=== PATIENT | male | born 1985 | race Asian ===

== ENCOUNTER 2019-05-05 12:28 | Observation (INO) | payer OTHER ==
[~2019-05-05] VITALS: Ht 172.7 cm; Wt 78.5 kg
[2019-05-05] MEDS ORDERED: KETOROLAC TROMETHAMINE 30 MG/ML VIAL ONE (12:51)
[2019-05-05] MEDS ORDERED: SODIUM CHLORIDE 0.9% 1000ML 1,000 ML ONE (12:52)
[2019-05-05] MEDS ORDERED: ONDANSETRON HCL INJ 2MG/ML 2ML 2 MG/ML VIAL ONE ×3 (12:52→20:05)
--- NOTE | 2019-05-05 13:30 | NUR ---
auto detailer phone used per policy.
--- NOTE | 2019-05-05 14:16 | Diagnostic Imaging Report ---
EXAMINATION: CT of the abdomen and pelvis without contrast. TECHNIQUE: Spiral CT images of the abdomen and pelvis were performed from the lung bases to the lesser trochanters. No intravenous contrast was given per renal stone protocol. Coronal and sagittal reformatted images were obtained. Technique modification was utilized to maintain the lowest dose possible to the patient. DLP: 425.02 mGy-cm COMPARISON: None. CLINICAL HISTORY:Right flank pain DISCUSSION: ABSENCE OF INTRAVENOUS CONTRAST DECREASES SENSITIVITY FOR DETECTION OF FOCAL LESIONS AND VASCULAR PATHOLOGY. ABDOMEN/PELVIS: LOWER THORAX: Unremarkable. HEPATOBILIARY:No focal hepatic lesions. No biliary ductal dilation. The gallbladder is normal. SPLEEN: No splenomegaly. PANCREAS: No focal masses or ductal dilatation. ADRENALS: No adrenal nodules. KIDNEYS/URETERS: Mild right hydronephrosis with dilated ureter. There is a 5-6 mm distal ureteral stone on the right at the acetabular level in the pelvis. PELVIC ORGANS/BLADDER: The bladder is normal. PERITONEUM/RETROPERITONEUM: No free air or fluid. LYMPH NODES: No intra-abdominal,retroperitoneal, pelvic or inguinal lymphadenopathy. VESSELS: Normal GI TRACT: No distention or wall thickening. BONES AND SOFT TISSUES: No bony destructive lesions. No soft tissue abnormalities. IMPRESSION: Distal right ureteral stone with resultant mild right hydronephrosis and hydroureter. Signed by: Dr. Juarez Castano DO on 05/05/2019 2:13 PM
[2019-05-05] MEDS ORDERED: ONDANSETRON HCL INJ 2MG/ML 2ML 2 MG/ML VIAL IV PRN (14:30)
[2019-05-05] MEDS ORDERED: KETOROLAC TROMETHAMINE 30 MG/ML VIAL IV PRN (14:30)
--- NOTE | 2019-05-05 14:41 | NUR ---
EMS CALLED ([facility])
--- OUTSIDE RECORDS SUMMARY | 2019-05-05 15:12 | XMS REPORT ---
Author Author [facility] Address Unknown Phone Unavailable Care Team Providers Care Logistics Tech Name Role Phone CAT NOLAN Unavailable Unavailable Problems This patient has no known problems. Allergies, Adverse Reactions, Alerts This patient has no known allergies or adverse reactions. Medications This patient has no known medications. Results Test Description Test Time Test Comments Text Results Atomic Results Result Comments CT ABD/PEL WO CONTRAST-HOPD 2019-05-05 14:06:00 [place] [address] Patient Name: WILBUR DEAN MR #: [id number] : 1985 Age/Sex: 33/M Req #: [id number] [facility] Physician: Ordered by: CAT NOLAN MD Report #: [id number] Location: REPLACED BY [facility] Room/Bed: Procedure: [id number] HOPD/CT ABD/PEL WO CONTRAST-HOPD Exam Date: 05/05/19 Exam Time: 1319 REPORT STATUS: Signed EXAMINATION: CT of the abdomen and pelvis without contrast. TECHNIQUE: Spiral CT images of the abdomen and pelvis were performed from the lung bases to the lesser trochanters. No intravenous contrast was given per renal stone protocol. Coronal and sagittal reformatted images were obtained. Technique modification was utilized to maintain the lowest dose possible to the patient. DLP: 425.02 mGy-cm COMPARISON: None. CLINICAL HISTORY:Right flank pain DISCUSSION: ABSENCE OF INTRAVENOUS CONTRAST DECREASES SENSITIVITY FOR DETECTION OF FOCAL LESIONS AND VASCULAR PATHOLOGY. ABDOMEN/PELVIS: LOWER THORAX: Unremarkable. HEPATOBILIARY:No focal hepatic lesions. No biliary ductal dilation. The gallbladder is normal. SPLEEN: No splenomegaly. PANCREAS: No focal masses or ductal dilatation. ADRENALS: No adrenal nodules. KIDNEYS/URETERS: Mild right hydronephrosis with dilated ureter. There is a 5-6 mm distal ureteral stone on the right at the acetabular level in the pelvis. PELVIC ORGANS/BLADDER: The bladder is normal. PERITONEUM/RETROPERITONEUM: No free air or fluid. LYMPH NODES: No intra- abdominal,retroperitoneal, pelvic or inguinal lymphadenopathy. VESSELS: Normal GI TRACT: No distention or wall thickening. BONES AND SOFT TISSUES: No bony destructive lesions. No soft tissue abnormalities. IMPRESSION: Distal right ureteral stone with resultant mild right hydronephrosis and hydroureter. Signed by: Dr. Tiffany Castano DO on 05/05/2019 2:13 PM Dictated By: TIFFANY CASTANO DO 1413 Transcribed By: BRITTNI on 05/05/19 1413 COPY TO: CAT NOLAN MD
[2019-05-05 15:50] VITALS: BP 117/71
[2019-05-05 16:13] VITALS: BP 117/71
--- NOTE | 2019-05-05 16:30 | NUR ---
Pt received from outside ER via stretcher. Pt is alert and oriented x4 but mostly speaks Mandarin. 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 Oriented to staff and surroundings. Encouraged to press call cortes if help needed. Fall precautions maintained. Call cortes within reach. Will monitor
[2019-05-05] MEDS: CEFTRIAXONE SOD 1 GM/NS 50 ML 50 ML IV SCH (16:39)
[2019-05-05] MEDS: SODIUM CHLORIDE 0.9% 1000ML 1,000 ML IV SCH (16:39)
[2019-05-05] MEDS ORDERED: LIDOCAINE HCL 2% LOCAL INJ 5 ML SDV VIAL INJ ONE ×2 (18:24→20:05)
[2019-05-05] MEDS ORDERED: PROPOFOL IV EMULSION 10 MG/ML 20 ML VIAL ONE ×2 (18:24→20:05)
[2019-05-05] MEDS ORDERED: DEXAMETHASONE SOD PHOS INJ 4 MG/ML VIAL ONE ×2 (18:24→20:05)
[2019-05-05] MEDS ORDERED: ACETAMINOPHEN 1000 MG/100 ML IV ONE (18:24)
[2019-05-05] MEDS ORDERED: SEVOFLURANE INHAL SOLN 250 ML PEN BTL ONE ×2 (18:24→20:05)
[2019-05-05] MEDS ORDERED: LIDOCAINE HCL 2% JELLY 5 ML TUBE ONE (18:24)
--- NOTE | 2019-05-05 19:10 | NUR ---
Pt resting in bed comfortably. Pt will be NPO after midnight. Handoff given to oncoming nurse.
[2019-05-05 20:00] VITALS: BP_SYST 113; BP_SYST 117; BP_DIAS 84
--- NOTE | 2019-05-05 20:27 | NUR ---
consulted physician on unit rounding on patient. received orders to DC toradol and start patient on morphine 2mg IV Q 2hours for pain. will continue to monitor patient.
[2019-05-05] MEDS ORDERED: MORPHINE SULFATE 2 MG/ML SYR 1ML IV PRN (20:30)
[2019-05-05] MEDS: MORPHINE SULFATE INJ 4 MG/ML INJ 1ML IV PRN (21:46)
--- NOTE | 2019-05-05 23:46 | Consultation ---
DATE OF CONSULTATION: 05/05/2019 Urology Consultation REASON FOR CONSULTATION: Renal colic. HISTORY OF PRESENT ILLNESS: Lebron Fox is a 33-year-old man with history of urolithiasis two years ago. The patient had a 5 mm ureteral stone. He was given ARBs by a friend and within approximately a month, the patient's symptomatology improved. He had a scan and it shows that the stone was gone. He believes the stone was dissolved by the ARBs. 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 He was evaluated and found to have obstructing ureterolithiasis and he was subsequently admitted and urological consultation was sought. The patient denies dysuria or hematuria. Denies ever having urinary tract infections. PAST MEDICAL AND SURGICAL HISTORY: 1. Status post circumcision approximately two years ago. 2. Prior urolithiasis. 3. Right leg greater than left leg varicose veins. ALLERGIES: NONE KNOWN. CURRENT MEDICATIONS: Normally none. Please refer to the MAR for current medications. FAMILY HISTORY: Significant for urolithiasis in the patient's brother. SOCIAL HISTORY: The patient denies smoking, ethanol, or drug use. 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 REVIEW OF SYSTEMS: Discussed as above in history of present illness and past medical history, otherwise negative for all systems. PHYSICAL EXAMINATION: GENERAL: Healthy-appearing 33-year-old male lying in bed, in no apparent distress. VITAL SIGNS: He is currently afebrile. Vital signs are currently stable. ABDOMEN: Soft, nondistended, nontender except for mild tenderness to deep palpation in the right lower quadrant. There is a very minimal right-sided costovertebral angle tenderness. Kidneys are not palpable, without hepatosplenomegaly. No obvious evidence of hernia. GENITOURINARY: Testes descended bilaterally. Testes and epididymides bilaterally palpably normal. The patient has a normal circumcised male phallus with normal meatus without any lesion. Digital rectal examination is deferred at the present time. For the remaining physical examination systems please refer the admission history and physical in the chart. LABORATORY STUDIES: CT scan of the abdomen and pelvis was performed without contrast as a stone protocol, it revealed mild right hydroureteronephrosis with a dilated ureter. There was a 5 to 6 mm distal ureteral stone located at the right acetabular level. White blood cell count is 11,300, hemoglobin 14.6, and platelets 241,000. The patient's creatinine is 1.0. Urinalysis significant for moderate blood as well as trace proteinuria. ASSESSMENT: 1. Right renal colic. 2. Prior history of urolithiasis. 3. Family history of urolithiasis. 4. Right distal ureteral stone. 5. Right hydroureteronephrosis. 6. Leukocytosis. 7. Proteinuria. 8. Microhematuria. PLAN: 1. Stone passage trial. 2. IV hydration. 3. IV analgesia. 4. IV antibiotics. 5. Straining of the urine has been ordered. 6. The patient will be made n.p.o. after midnight. He will be given stone passage trial should he fail to pass this stone, I will post him urgently to the operating room tomorrow for cystoscopy with retrograde pyelograms, right ureteroscopy with possible laser and insertion of stent. The patient understands that he will need ongoing urological followup. I recommended he proceed with metabolic stone workup due to the fact that he has recurrent urolithiasis with family history of urolithiasis. Should the patient pass his stone, we will consider cancelling the surgery and evaluating him for resolution of obstruction via a different modality. Thank you very much for involving us in the care of your patient. We will be happy to follow along with you as well as an outpatient. Iban Maldonado MD [place]/ALETA /[id number]
[2019-05-06] VITALS: BP 127/83
[2019-05-06] MEDS: SODIUM CHLORIDE 0.9% 1000ML 1,000 ML IV SCH ×2 (03:00→16:28)
[2019-05-06 04:00] VITALS: BP 92/68
[2019-05-06 05:29] LABS: BASOPHILS % 0.3 % (0.0-1.0); EOSINOPHILS # (AUTO) 0.1 (0.0-0.4); HEMATOCRIT 39.9 % (38.2-49.6); HEMOGLOBIN 13.4 g/dL (14.0-18.0); LYMPHOCYTES % 17.1 % (18.0-39.1); MEAN CORPUSCULAR HEMOGLOBIN 29.1 pg (28-32); MEAN CORPUSCULAR HGB CONC 33.6 g/dL (31-35); MEAN CORPUSCULAR VOLUME 86.6 fL (81-99); MONOCYTES # (AUTO) 1.2 (0.2-0.8); MONOCYTES % 10.3 % (4.4-11.3); NEUTROPHILS # (AUTO) 8.2 (2.1-6.9); PLATELET COUNT 223 x10e3/uL (140-360); RED BLOOD COUNT 4.61 x10e6/uL (4.3-5.7)
[2019-05-06 05:54] LABS: ANION GAP 10.5 mmol/L (8-16); BLOOD UREA NITROGEN 20 mg/dL (7-26); BUN/CREATININE RATIO 18 (6-25); CALCIUM 8.3 mg/dL (8.4-10.2); CARBON DIOXIDE 26 mmol/L (22-29); CHLORIDE 104 mmol/L (98-107); CREATININE, SERUM 1.11 mg/dL (0.72-1.25); EST GLOMERULAR FILTRATION RATE > 60 ML/MIN (60-); GLUCOSE 85 mg/dL (74-118); POTASSIUM 3.5 mmol/L (3.5-5.1); SODIUM 137 mmol/L (136-145)
--- NOTE | 2019-05-06 06:59 | NUR ---
report given to day nurse. patient is resting comfortably in bed. bed is in lowest position and call cortes is within reach
--- NOTE | 2019-05-06 07:29 | NUR ---
H&P cc: right lower abdominal pain HPI:33yoM, no PCP, urology , right abdominal pain, found to have ureterolithiais. PMH: urinary steones PSHx: none Allergies; see emr Fh/SH; single; no cigs/etoh meds; see MAR ROS: no f/c/s/N/V/D/LAIRD/vision changes/cp/sob/skin rash/LAIRD V/s; revd PE: tired appearing anicteric ns1s2 mod bs soft; RIGHT lower abdomen tender no e/t skin dry n. affect a&ox3; mcghee labs/med revd A/P: 33yoM Right ureterolithiasis Right hydronephrosis and hydroureter Prop: scd DIspo ;IVF; IV abx; f/u urology Anish Orozco MD, PhD.
[2019-05-06] MEDS: MORPHINE SULFATE INJ 4 MG/ML INJ 1ML IV PRN (07:31)
[2019-05-06 08:24] VITALS: BP 115/71
[2019-05-06 08:33] VITALS: BP 115/71
--- NOTE | 2019-05-06 11:26 | Diagnostic Imaging Report ---
Exam: Abdominal film Clinical History: Stone Comparison: CT abdomen and pelvis 05/05/2019 DISCUSSION: 5 mm distal right ureteral stone is unchanged in position compared to drying oven tender tomogram from CT 05/05/2019. No additional calcifications project over the renal shadows or expected ureteral courses. Bowel gas pattern is nonobstructive. Regional skeletal structures are intact. IMPRESSION: Unchanged position of 5 mm distal right ureteral calculus relative to CT abdomen and pelvis 05/05/2019. Signed by: Dr. Donte Jones M.D. on 05/06/2019 11:23 AM
[2019-05-06 12:09] VITALS: BP 103/73
--- NOTE | 2019-05-06 14:15 | NUR ---
patient to OR at this time.
[2019-05-06] MEDS ORDERED: B&O 60MG R/S 60 MG SUPP PR ONE (14:32)
[2019-05-06] MEDS ORDERED: IOPAMIDOL 610MG/1ML 300 MG/ML VIAL IV ONE (14:32)
[2019-05-06 16:20] VITALS: BP 114/84
[2019-05-06] MEDS: CEFTRIAXONE SOD 1 GM/NS 50 ML 50 ML IV SCH (16:28)
--- NOTE | 2019-05-06 16:47 | NUR ---
D/C summary Principal Dx: Right ureterolithiasis Right hydronephrosis and hydroureter Secondary dx: none s/p cystoscopy and lithotripsy with stent placement D/C home f/u pcp 1 week and urology 3 days stable d/c>35mins Anish Orozco MD, PhD.
--- NOTE | 2019-05-06 18:20 | NUR ---
patient clear to discharge. foreign liaison notified and prescriptions being filled for discharge tonight. IVF stopped and patient SL
[2019-05-06] MEDS ORDERED: MIDAZOLAM HCL 2 MG/2 ML VIAL ONE (18:38)
[2019-05-06] MEDS ORDERED: FENTANYL CITRATE/PF 100MCG/2 ML INJ ONE (18:38)
[2019-05-06] MEDS ORDERED: TYLENOL WITH C1 EACH PO (20:11)
[2019-05-06] MEDS ORDERED: DITROPAN XL5 MG PO (20:13)
[2019-05-06] MEDS ORDERED: PYRIDIUM100 MG PO (20:15)
[2019-05-06] MEDS ORDERED: BACTRIM DS TAB1 EACH PO (20:17)
--- NOTE | 2019-05-06 20:29 | NUR ---
PATIENT IS DISCHARGED TO HIS HOTEL. DISCHARGED INSTRUCTIONS AND F/U GIVEN TO THE PATIENT AND HIS HEALTH CARE MRI MANAGER, THEY VOICED UNDERSTANDING. ALL PERSONAL ITEMS TAKEN WITH THE PATIENT, HE LEFT UNIT PER AMBULATION TO THE FRONT LOBBY IN STABLE CONDITION.
--- NOTE | 2019-06-06 03:02 | Operative Report ---
DATE OF PROCEDURE: 05/06/2019 SURGEON: Iban Maldonado MD PREOPERATIVE DIAGNOSES: 1. Right obstructing ureterolithiasis. 2. Microhematuria. POSTOPERATIVE DIAGNOSIS: 1. Right obstructing ureterolithiasis. 2. Microhematuria. OPERATION PERFORMED: 1. Cystourethroscopy with bilateral ureteral catheterization and retrograde ureteropyelography (separate procedure was performed for the microhematuria). 2. Interpretation of retrograde ureteropyelography. 3. Supervision of fluoroscopy, no radiologist present. 4. Right ureteroscopy with holmium laser lithotripsy, stone extraction, and insertion of stent (separate procedure was performed for the ureterolithiasis). 5. Urological Services with supervision and interpretation of ureteroscopy. ANESTHESIA: General. COMPLICATIONS: None. CLINICAL SUMMARY: Please refer to consultation dictation from the prior date. OPERATIVE PROCEDURE IN DETAIL: Informed consent was verified. Lebron Fox was properly identified, taken to the operating room, and placed on the cystoscopy table in supine position. Anesthesia was uneventfully begun. The patient was then carefully and gently repositioned in the dorsal lithotomy position with all pressure points well padded. His genitalia were prepared and draped in usual sterile fashion. The cystoscope sheath with the visual obturator in place was atraumatically inserted into the patient's urethra, was guided unremarkable into urethra through the normal sphincteric region, through the normal prostate bed into the patient's bladder. Panendoscopy revealed no suspicious mucosal lesions, no tumors, no stones, and no diverticula. Normally positioned and configured. Ureteral orifices were identified. A ureteral catheter was used to cannulate each ureter and retrograde ureteropyelograms were performed. A guidewire was then placed into the right ureter and guided to the level of the patient's kidney. Semi-rigid ureteroscopy was then performed. The ureteroscope was brought up alongside the guidewire up into the ureter until we identified the obstructing stone, stone underwent holmium laser lithotripsy until we fragmented into several fragments. A basket was then utilized to atraumatically extract the stone fragments, only very fine sand remained. It was irrigated to loosen it from the mucosa and allow it to pass. With cystoscopic and fluoroscopic guidance, a right-sided indwelling ureteral stent was then placed. It was coiled in the patient's kidneys as well as the patient's bladder. The retaining suture was removed. Interpretation of retrograde ureteropyelography contrast was instilled in retrograde fashion bilaterally. The left side was unremarkable. There were no tumors, no stones, no diverticula. Unobstructed drainage was observed fluoroscopically. There was no hydronephrosis. The right side exhibited hydroureteronephrosis down the level of the patient's stone. There were no suspicious lesions identified. The stent was in good position, coiled in the patient's kidneys as well as the patient's bladder at the end of the case. The patient's bladder was drained. Cystoscope was withdrawn. A belladonna and opium suppository were placed revealing a small 15 g prostate, smooth and non-fluctuant without any nodules. The patient was then uneventfully reversed from anesthesia and taken to recovery room in stable condition. Explicit postop instructions were given. The patient may be discharged once he has adequate pain control. He may travel back to [place], where he needs to see a urologist as soon as possible and he was instructed multiple times preoperatively and postoperatively that he needs to follow up with the urologist for removal of the stent. He also needs metabolic stone workup in order to minimize the risk of stone recurrence. MD RAKEL Roa/ALETA /[id number]
== END 2019-05-06 20:30 | disposition home or self-care (01) ==
LOC: FSED 12:28 → ERHOLD 14:34 → IMCU 15:55
PROVIDERS: ADMIT Internal Medicine; ATTEND Internal Medicine
DX: N13.2 Hydronephrosis with renal and ureteral calculous obstruction (principal); R31.9 Hematuria, unspecified; R80.9 Proteinuria, unspecified; N23 Unspecified renal colic
CPT/HCPCS: 36415; 50590; 50694; 74018; 74176; 74420; 80048; 80053; 81003; 83970; 84550; 85025; 88300; 99284; C1758; C1766; C1874; G0378; J0696; J1100; J1885; J2001; J2250; J2270; J2405; J3010; J7030